=== PATIENT | male | born 1980 | race Hispanic/Latino ===

== ENCOUNTER 2020-11-28 16:10 | Emergency (ER) | payer BC ==
[2020-11-29 06:59] LABS: SARS-CoV-2 PCR by NAA Not Detected (NotDetected)
== END 2020-11-28 17:25 | disposition home or self-care (01) ==
LOC: ERS 16:10
DX: R05 Cough (principal); Z20.822 Contact with and (suspected) exposure to COVID-19; F17.210 Nicotine dependence, cigarettes, uncomplicated
CPT/HCPCS: 87635; 99283; U0003; U0005

== ENCOUNTER 2023-11-01 19:51 | Emergency (ER) | payer BC, SELFPAY ==
[2023-11-01] MEDS ORDERED: Lidocaine 1% w/Epinephrine 1:100K 20 ML VIAL ONE (20:54)
[2023-11-01] MEDS ORDERED: Bupivacaine PF 0.5% 30 ML VIAL ONE (20:54)
[2023-11-01] MEDS ORDERED: Bacitracin 1 PK ONE (22:26)
== END 2023-11-01 22:30 | disposition home or self-care (01) ==
LOC: ERS 19:51
DX: S61.216A Laceration without foreign body of right little finger without damage to nail, initial encounter (principal); F17.210 Nicotine dependence, cigarettes, uncomplicated; Z23 Encounter for immunization; W26.8XXA Contact with other sharp object(s), not elsewhere classified, initial encounter
CPT/HCPCS: 12001; J0665